=== PATIENT | male | born 1965 | race Caucasian/White ===

== ENCOUNTER 2020-02-01 09:54 | Emergency (ER) | payer OTHER, SELFPAY ==
--- NOTE | ~2020-02-01 | XR_ITS ---
EXAMINATION: XR ribs RT 2V w CXR 2V DATE: 02/01/2020 10:17 INDICATION: Right anterior chest pain. Fall. TECHNIQUE: Frontal and lateral views of the chest and 3 views of the right ribs were obtained. COMPARISON: None. FINDINGS: CHEST TWO VIEWS: A calcified right lung nodule and calcified right hilar lymph nodes are consistent w ith old granulomatous disease. No pleural effusion or pneumothorax. The heart size is normal. RIGHT RIBS: There is no rib fracture. IMPRESSION: 1. No rib fracture. Reviewed, dictated and finalized at location A. IMPRESSION: 1. No rib fracture.
[2020-02-01 10:06] VITALS: BP 120/69; PULSE 53; RESP 18; TEMP 36.4; O2SAT 100
--- NOTE | 2020-02-01 10:24 | ED.GENADULT ---
HPI - General Adult General Chief complaint: Unspecified Stated complaint: fell rib pain Time Seen by Provider: 02/01/20 10:24 Source: patient and RN notes reviewed Mode of arrival: ambulatory Limitations: no limitations History of Present Illness HPI narrative: 54-year-old male presents with complaints of right rib cage pain status post near fall hitting ribs on ladder for 1 day. Judd says he caught his fall on 01/31/20 but RT ribs hit top of ladder and pain increased throughout the night. Ibuprofen 600mg, last on 01/31/20 approximately 22:00 without relief. Denies difficulty breathing or cough. No bruising. No deformity. Exacerbating factors consist of taking a deep breath and movement. Relieving factor consist of resting. No cardiac chest pain, wheezing, or shortness of breath. Denies hitting head or loss consciousness. Denies syncopal, dizziness, seizure activities, abdominal pain, nausea, and vomiting. Tolerating intake well. Remains active. The patient reports he have not been diagnosed with COVID-19. The patient reports he is not waiting for the results of a COVID-19 lab test. The patient reports he do not have fever, chills, weakness, or fatigue. The patient reports he do not have a new or worsening cough or shortness of breath. The patient reports he do not have any rhinorrhea, congestion, loss of taste, sore throat, and diarrhea. Denies recent traveling. Denies concerns for COVID-19 or exposures been home with limited outdoor exposure except for essential household needs, work, and return home. At this time, patient is not suspected of having COVID-19. Some parts of this dictation were generated by voice recognition software and may contain typographical and/or grammatical inaccuracies. Related Data Home Medications Medication Instructions Recorded Confirmed metoprolol tartrate 02/01/20 Allergies Allergy/AdvReac Type Severity Reaction Status Date / Time NKDA Allergy Unknown Uncoded 02/01/20 10:26 Review of Systems Review of Systems: Narrative: CONSTITUTIONAL: Denies fever, chills, sweats. EYES: Denies visual changes, redness, discharge. ENT: Denies rhinorrhea, congestion, sore throat, otalgia. CARDIOVASCULAR: Denies chest pain, palpitations, edema. RESPIRATORY: Denies dyspnea, wheezing, cough. GASTROINTESTINAL: Denies abdominal pain, nausea, vomiting, diarrhea. GENITOURINARY: Denies dysuria, hematuria, abnormal discharge. SKIN: Denies rash or itching. MUSCULOSKELETAL: Denies acute back pain, joint pain, myalgia. Complains of acute right rib tenderness. NEUROLOGIC: Denies numbness or focal weakness. PSYCHIATRIC: Denies anxiety or depression. All systems reviewed & are unremarkable except as noted in HPI and below. [facility] Past Medical History Medical History (Updated 02/02/20 @ 00:00 by Geraldo Barnett) Back pain with history of spinal surgery Hypertension Surgical History Surgical History (Updated 02/01/20 @ 11:13 by DYLAN Pacheco) History of spinal surgery Family History Family History (Updated 02/01/20 @ 11:14 by DYLAN Pacheco) Father Heart disease Mitral valve prolapse Valve replaced Malignant neoplasm of prostate Mother Rheumatoid arthritis Social History Social History (Updated 02/01/20 @ 11:15 by DYLAN Pacheco) Smoking status: Never smoker Tobacco type: cigarettes Second hand tobacco smoke exposure: No Alcohol intake: current Substance use: never Living arrangements: with family Occupation/Education: occupation Gender identity (if verbalized by the patient): Male Sexual Orientation (if Verbalized by the Patient): Straight or Heterosexual Comments At time of signature, agree with nurse past medical, surgical, social, and family history. There is no relevant family history pertinent to the presenting complaint. Exam Narrative: Exam Narrative: GENERAL: This is a well-nourished, well-developed patie
[2020-02-01] MEDS: KETOROLAC (*BKC) 60 MG/2 ML VIAL IM (10:41)
== END 2020-02-01 11:12 | disposition home or self-care (01) ==
PROVIDERS: Emergency Provider Nurse Practitioner Family; PCP Family Medicine Adolescent Medicine
DX: S20.211A Contusion of right front wall of thorax, initial encounter (principal); W11.XXXA Fall on and from ladder, initial encounter; I10 Essential (primary) hypertension
CPT/HCPCS: 71046; 71100; 96372; 99213; G0463; J1885

== ENCOUNTER 2021-10-25 10:46 | Emergency (ER) | payer OTHER, SELFPAY ==
--- NOTE | ~2021-10-25 | XR_ITS ---
EXAMINATION: XR chest 2V DATE: 10/25/2021 11:27 INDICATION: Right chest pain. TECHNIQUE: Frontal and lateral views of the chest were obtained. COMPARISON: Chest 2 views 03/03/2020 FINDINGS: A calcified right lung nodule and calcified right hilar lymph nodes are consistent with old granulomatous disease. No pleural effusion or pneumothorax. The heart size is normal. IMPRESSION: 1. No acute cardiopulmonary disease. Reviewed, dictated and finalized at location A.
[2021-10-25 11:02] VITALS: BP 176/75; PULSE 46; RESP 16; TEMP 36; O2SAT 99
--- NOTE | 2021-10-25 11:16 | ED.URI ---
HPI - URI/Sore Throat General Chief Complaint: Chest Pain Stated Complaint: cp Time Seen by Provider: 10/25/21 11:16 History of Present Illness HPI Narrative: Judd Mulligan is a 56 yo male with PMH of hypertension [facility] with complaints of right-sided chest pain that is mid back and right upper chest. No pain can be elicited with movement of arms or twisting and states it hurts for him to take a deep breath spoke with his doctor who recommended he get a chest x-ray Related Data Allergies Allergy/AdvReac Type Severity Reaction Status Date / Time nifedipine AdvReac Intermediate dizziness, Verified 07/19/21 15:42 edema lisinopril AdvReac Mild Cough Verified 10/25/21 11:13 losartan AdvReac Mild Cough Verified 10/25/21 11:13 NKDA Allergy Unknown Unknown Uncoded 07/19/21 15:28 Review of Systems Review of Systems: CONSTITUTIONAL: Denies fever, chills, sweats. EYES: Denies visual changes, redness, discharge. ENT: Denies rhinorrhea, congestion, sore throat, otalgia. CARDIOVASCULAR: Denies chest pain, palpitations, edema. RESPIRATORY: Denies dyspnea, wheezing, cough GASTROINTESTINAL: Denies abdominal pain, nausea, vomiting, diarrhea. GENITOURINARY: Denies dysuria, hematuria, abnormal discharge SKIN: Denies rash or itching. NEUROLOGIC: Denies numbness, or focal weakness. PSYCHIATRIC: Denies anxiety or depression. Right-sided upper chest pain PMFSH Past Medical History Medical History Back pain with history of spinal surgery Hypertension Normal colonoscopy 02/22 Surgical History Surgical History History of spinal surgery Family History Family History Father Heart disease Mitral valve prolapse Valve replaced Malignant neoplasm of prostate Mother Rheumatoid arthritis Heart disease Social History Social History Smoking status: Never smoker Tobacco type: cigarettes Second hand tobacco smoke exposure: No Alcohol intake: current Drinks per week: 3 Substance use: never Substance use type: does not use Gender identity (if verbalized by the patient): Male Sexual Orientation (if Verbalized by the Patient): Straight or Heterosexual Spiritual care concerns: No Agree to blood products: Yes Exam Narrative: GENERAL: This is a well-nourished, well-developed patient, in mild distress. HEAD: normocephalic, atraumatic. EYES: Sclera clear/white. Vision is grossly intact. EARS: External ears normal, auditory canals clear and without drainage, TMs normal without perforation. Hearing grossly intact. NOSE: External nose normal without nasal discharge, nares without redness, no rhinorrhea. THROAT: Mucous membranes moist, NECK: Neck supple, non-tender CARDIOVASCULAR: Bradycardia rate and rhythm without murmurs, gallops, or rubs. RESPIRATORY: Clear to auscultation. Breath sounds equal bilaterally. No wheezes, rales, or rhonchi. Unable to elicit any discomfort with twisting or movement GASTROINTESTINAL: Abdomen soft, non-tender, SKIN: warm, intact with no suspicious lesions or rash, good texture and turgor. NEURO: awake, alert, and oriented to person, place and time. There were no obvious focal neurologic abnormalities. Steady gait EXTREMITIES: Normal range of motion. BACK: Nontender without deformity Course Course Emergency Course: Patient comes with complaints of right upper chest pain that is radiating to back; PCP who recommended he had a chest x-ray Chest x-ray shows no acute cardiopulmonary disease no pleural effusion or pneumothorax the heart is normal size he does have a calcified right lung nodule and calcified right healer lymph nodes consistent with old granulomatous disease Started on baclofen and Tylenol and follow-up with primary care physician Level o
== END 2021-10-25 12:04 | disposition home or self-care (01) ==
PROVIDERS: Emergency Provider Nurse Practitioner; PCP Family Medicine Adolescent Medicine
DX: M94.0 Chondrocostal junction syndrome [Tietze] (principal); I10 Essential (primary) hypertension
CPT/HCPCS: 71046; 99213; G0463

== ENCOUNTER 2022-11-05 07:29 | Day surgery (SDC) | payer OTHER, SELFPAY ==
[2022-09-12 11:19] VITALS: BMI 30.2
--- NOTE | 2022-11-02 16:42 | PM.HPGS ---
History of Present Illness History of Present Illness Consent: Risks, benefits, and alternatives have been discussed and questions answered. Patient agrees to proceed with procedure. Chief complaint: Neoplasm Screening Narrative: Judd Mulligan is a 57 year old male Referred for colon cancer screening. His last colonoscopy was 13 years ago. Review of Systems Review of Systems: All systems reviewed & are unremarkable except as noted in HPI and below PMFSH Past Medical History Medical History Back pain with history of spinal surgery Hypertension Normal colonoscopy 02/22 Surgical History Surgical History History of spinal surgery Family History Family History Father Heart disease Mitral valve prolapse Valve replaced Malignant neoplasm of prostate Mother Rheumatoid arthritis Heart disease Social History Social History Smoking status: Never smoker Tobacco type: cigarettes Second hand tobacco smoke exposure: No Alcohol intake: current Drinks per week: 2 Substance use: never Substance use type: does not use Living arrangements: with family Occupation/Education: occupation Gender identity (if verbalized by the patient): Male Sexual Orientation (if Verbalized by the Patient): Straight or Heterosexual Spiritual care concerns: No Agree to blood products: Yes Meds Home Medications and Allergies Home Medications Medication Instructions Recorded Confirmed Type metoprolol succinate 50 mg See Rx Instructions .Route 09/14/22 11/05/22 Rx tablet,extended release 24 hr .COMPLEX #90 tabs doxazosin 2 mg tablet See Rx Instructions .Route 10/02/22 11/05/22 Rx .COMPLEX #90 tabs Allergies Allergy/AdvReac Type Severity Reaction Status Date / Time nifedipine AdvReac Intermediate dizziness, Verified 11/05/22 07:40 edema lisinopril AdvReac Mild Cough Verified 11/05/22 07:40 losartan AdvReac Mild Cough Verified 11/05/22 07:40 Exam Const: General: alert Orientation/consciousness: patient oriented x3 Resp: Auscultation: clear to auscultation bilaterally Cardio: Rhythm: regular rhythm GI: GI Palp: Yes Soft to palpation and No Tenderness to palpation present (GI) Neuro: General: patient oriented x3 Assessment and Plan Assessment and plan (1) Colon cancer screening: Code(s): Z12.11 - Encounter for screening for malignant neoplasm of colon Status: Acute Assessment and Plan: Colonoscopy with possible biopsy or polypectomy or cautery or injection of substances.
--- NOTE | 2022-11-05 06:54 | WPDANESEPPF ---
Anes - Initial Pre Proc Eval Procedure: Operation Date: 11/05/22 09:00 Proposed Procedures p Screening Colonoscopy - Justin Lin MD Date/Time: 11/05/22 06:54 Surgeon: Justin Lin MD Pre Op Diagnosis: Neoplasm Screening Patient Data Age: 57 Gender: M Height: 1.75 m Weight: 93 kg Allergies Allergy/AdvReac Type Severity Reaction Status Date / Time nifedipine AdvReac Intermediate dizziness, Verified 11/05/22 07:40 edema lisinopril AdvReac Mild Cough Verified 11/05/22 07:40 losartan AdvReac Mild Cough Verified 11/05/22 07:40 Home Medications Medication Instructions Recorded Confirmed Type metoprolol succinate 50 mg See Rx Instructions .Route 09/14/22 11/05/22 Rx tablet,extended release 24 hr .COMPLEX #90 tabs doxazosin 2 mg tablet See Rx Instructions .Route 10/02/22 11/05/22 Rx .COMPLEX #90 tabs Patient hx anesthesia problems: none Family hx anesthesia problems: none Results Review: All pre-operative results and documents have been reviewed as part of the pre-operative evaluation. [facility] Past Medical History Medical History Back pain with history of spinal surgery Hypertension Normal colonoscopy 02/22 Surgical History Surgical History History of spinal surgery Family History Family History Father Heart disease Mitral valve prolapse Valve replaced Malignant neoplasm of prostate Mother Rheumatoid arthritis Heart disease Social History Social History Smoking status: Never smoker Tobacco type: cigarettes Second hand tobacco smoke exposure: No Alcohol intake: current Drinks per week: 2 Substance use: never Substance use type: does not use Living arrangements: with family Occupation/Education: occupation Gender identity (if verbalized by the patient): Male Sexual Orientation (if Verbalized by the Patient): Straight or Heterosexual Spiritual care concerns: No Agree to blood products: Yes Anes - Eval Final PreProcedure Day of Procedure 11/05/22 06:54 Patient weight: obese Heart: regular rate and rhythm Lungs: clear to auscultation Airway: Mallampati scale class II Neurological: alert and oriented Last oral intake: >/= 8 hours ASA classification: II Emergent: no Anesthetic plan: proceed Anesthesia type and monitoring: general GIVS and standard monitoring Results Review: All pre-operative results and documents have been reviewed as part of the pre-operative evaluation. Informed Consent: The patient's anesthetic plan and its attendant risks and benefits were discussed with the patient/family/POA. Questions were solicited and answers provided to the satisfaction of the patient/family/POA.
[2022-11-05 07:43] VITALS: BP 130/84; PULSE 87; RESP 16; TEMP 36.8; O2SAT 99
[2022-11-05 08:56] VITALS: BP 103/66; PULSE 59; RESP 16; O2SAT 96
[2022-11-05] MEDS: LACTATED RINGERS 1,000 ML 150 ML IV CONT (08:58)
[2022-11-05 09:06] VITALS: BP 119/71; PULSE 52; RESP 20; O2SAT 95
[2022-11-05 09:16] VITALS: BP 133/90; PULSE 59; RESP 20; O2SAT 96
--- NOTE | 2022-11-05 12:04 | WPDANESPN ---
Anes - Prog Note Post-Op Date/Time: 11/05/22 12:04 Cardiovascular status: normal Respiratory status: normal Airway patency: baseline Mental status: baseline Post-Op hydration status: normal Vital Signs: Last Vital Signs Temp 36.8 C 11/05/22 07:43 Pulse 59 L 11/05/22 09:16 Resp 20 11/05/22 09:16 BP 133/90 11/05/22 09:16 Pulse Ox 96 11/05/22 09:16 O2 Del Method Room Air 11/05/22 09:16 Pain Score (VAS): 0 I/O: Intake & Output 11/04/22 11/05/22 11/05/22 23:59 07:59 15:59 Intake Total 450 Balance 450 Post-procedural complaints: none Patient Feedback: Patient satisfied with anesthetic care. Other Findings: Patient vital signs back to baseline. Patient denies nausea and vomiting. Patient's pain under control. Patient OK for discharge.
== END 2022-11-05 09:35 | disposition home or self-care (01) ==
PROVIDERS: PCP Family Medicine Adolescent Medicine; Visit Provider Internal Medicine Gastroenterology
PROC: 0DJD8ZZ Inspection of Lower Intestinal Tract, Via Natural or Artificial Opening Endoscopic (ICD-10-PCS; CPT 45378; principal; 2022-11-05 09:00)
DX: Z12.11 Encounter for screening for malignant neoplasm of colon (principal)
CPT/HCPCS: 45380

== ENCOUNTER 2022-11-05 09:00 | Outpatient (NON) | payer OTHER, SELFPAY | END 2022-11-05 09:01 | disposition home or self-care (01) | LOC: ANHLAB 11-06 07:26 | PROVIDERS: PCP Family Medicine Adolescent Medicine; Visit Provider Internal Medicine Gastroenterology | DX: Z12.11 Encounter for screening for malignant neoplasm of colon (principal); D12.2 Benign neoplasm of ascending colon; D12.5 Benign neoplasm of sigmoid colon | CPT/HCPCS: 88305 ==

== ENCOUNTER 2023-07-31 09:46 | Outpatient (CLI) | payer OTHER, SELFPAY ==
--- NOTE | ~2023-07-31 | US_ITS ---
EXAMINATION: US carotid duplex BI DATE: 07/31/2023 10:11 INDICATION: Carotid atherosclerosis. TECHNIQUE: Grayscale, color Doppler, and pulsed Doppler images of the cervical carotid arteries were obtained. The degree of vessel stenosis is placed in one of the following categories: normal, <50%, 5 0-69%, >=70% but less than near-occlusion, near-occlusion, or total occlusion. Note that percent sten osis relative to normal distal artery lumen diameter is indirectly measured from velocity measurement s as described by Nate, et al. Radiology 2003; 229:340-346. Notes: Normal: Peak systolic velocity <125 centimeters/sec and no plaque <50%. Peak systolic velocity <125 ( EDV <40; ICA/CCA PSV ratio <2.0; used these factors only a tandem lesions or low cardiac output or co ntralateral disease) 50-69 %: PSV 125-230 (EDV 40-100; ratio 2-4) >= 70% but less than near occlusion: PSV greater than 230 (EDV > 100; ratio> 4.0) Near Occlusion: PSV that is variable; markedly narrowed lumen Occlusion: Absent flow on color/spectral Doppler and no lumen on fernández scale. COMPARISON: None. FINDINGS: RIGHT: The right common carotid artery (CCA) peak systolic velocity (PSV) is 64 cm/s. The right internal car otid artery (ICA) PSV is 64 cm/s. The right ICA end-diastolic velocity (EDV) is 20 cm/s. The right IC A/CCA PSV ratio is 1. The external carotid artery (ECA) PSV is 126 cm/s. There is antegrade flow in t he right vertebral artery. LEFT: The left CCA PSV is 62 cm/s. The left ICA PSV is 84 cm/s. The left ICA EDV is 37 cm/s. The left ICA/C CA PSV ratio is 1.3. The ECA PSV is 109 cm/s. There is antegrade flow in the left vertebral artery. IMPRESSION: 1. Less than 50% stenosis in the right internal carotid artery by sonographic criteria. 2. Less than 50% stenosis in the left internal carotid artery by sonographic criteria. Reviewed, dictated and finalized at location B. IMPRESSION: 1. Less than 50% stenosis in the right internal carotid artery by sonographic dinh melendez. 2. Less than 50% stenosis in the left internal carotid artery by sonographic joie herron.
== END 2023-07-31 09:47 ==
LOC: MICIMG 09:47
PROVIDERS: PCP Family Medicine Adolescent Medicine; Visit Provider Family Medicine Adolescent Medicine
DX: I65.23 Occlusion and stenosis of bilateral carotid arteries (principal)
CPT/HCPCS: 93880